=== PATIENT | male | born 1980 | race Caucasian/White ===

== ENCOUNTER 2017-08-14 11:01 | Emergency (ER) | payer SELFPAY ==
[2017-08-14] MEDS ORDERED: Glucagon* 1 MG VIAL IV ONE (11:20)
[2017-08-14] MEDS ORDERED: NS 0.9% 1000 ML* 1,000 ML IV ONE (11:24)
--- NOTE | 2017-08-14 11:57 | ED ---
GI/ HPI - HPI Summary HPI Summary: Pt. is a 37 y.o male who presents to the ER for a piece of meat stuck in his throat. Pt. states he was eating steak last night when a piece become lodge in his throat. Pt. states he is unable to keep down liquids today. He states this has happened in the past but passed on its own. Symptoms are moderate in severity. No past medical history. No current modifying factors. - History of Current Complaint Chief Complaint: EDForeignBodyEsophag Time Seen by Provider: 08/14/17 11:15 Stated Complaint: FO IN THROAT Hx Obtained From: Patient Pain Intensity: 0 - Allergy/Home Medications Allergies/Adverse Reactions: Allergies Allergy/AdvReac Type Severity Reaction Status Date / Time No Known Allergies Allergy Verified 08/14/17 11:05 Home Medications: Home Medications LoraTADine TAB(NF) [Claritin 10 MG TAB(NF)] 10 mg PO DAILY PRN 08/14/17 [ History Confirmed 08/14/17] Minocycline (NF) 100 mg PO DAILY 08/14/17 [History Confirmed 08/14/17] PMH/Surg Hx/FS Hx/Imm Hx Previously Healthy: Yes - Immunization History Date of Tetanus Vaccine: 1998 Infectious Disease History: No Infectious Disease History: Denies: Traveled Outside the [place] in Last 30 Days - Social History Substance Use Type: Reports: None Review of Systems All Other Systems Reviewed And Are Negative: Yes Physical Exam Triage Information Reviewed: Yes Vital Signs On Initial Exam: Initial Vitals Temp Pulse Resp BP Pulse Ox 98.2 F 99 16 145/97 99 08/14/17 11:03 08/14/17 11:03 08/14/17 11:03 08/14/17 11:03 08/14/17 11:03 Vital Signs Reviewed: Yes Appearance: Positive: Well-Appearing - Pt. sitting on bed in NAD. Head/Face: Positive: Normal Head/Face Inspection Eyes: Positive: Normal ENT: Positive: Other - No drooling Neck: Positive: Supple Neurological: Positive: Normal, CN Intact II-III Psychiatric: Positive: Affect/Mood Appropriate Diagnostics - Vital Signs Vital Signs Temp Pulse Resp BP Pulse Ox 08/14/17 11:03 98.2 F 99 16 145/97 99 - Laboratory Lab Statement: Any lab studies that have been ordered have been reviewed, and results considered in the medical decision making process. GIGU Course/Dx - Course Course Of Treatment: Pt. presenting with esophageal impaction after eating steak last night. He attempted to drink water in the ER and spit it all back up. IV was started and we'll try 1 mg IV glucagon. GI was consulted. I spoke with Dr. Andrews around noon and he states he will scope pt. in the ER around 1400. 1242: Pt. resting comfortably at this time. 1400: Dr. Andrews in ER to perform scope. Dr. Andrews was successfully able to remove FB. Please see his procedure note for further details. He does not that pt. does have a lower spincter that will need dilated in the future. He would like him started on omeprazole 40mg QD. He states his office will call pt. to set up a follow up appointment. 1645: Pt. has recovered from sedation and is ambulating around the department. Will dc home with . - Diagnoses Differential Diagnoses - Male: Foreign Body Provider Diagnoses: Esophageal obstruction due to food impaction Discharge - Sign-Out/Discharge Documenting (check all that apply): Discharge/Admit/Transfer - Discharge Plan Condition: Good Disposition: HOME Prescriptions: Omeprazole 40 mg PO DAILY #30 capsule. Patient Education Materials: Gastroesophageal Reflux Disease (ED), Esophageal Stricture (ED), Moderate Sedation (ED) Referrals: Anatoly Andrews MD [Medical Doctor] - Humberto ARBOLEDA,Jose Coelho [Primary Care Provider] - Additional Instructions: Dr. Andrews's office will call you to schedule a follow up appointment Take omeprazole as directed Avoid foods high in caffeine, spice, acid, avoid alcohol and smoking Return to ER if symptoms change or worsen - Billing Disposition and Condition Condition: GOOD Disposition: Home
[2017-08-14] MEDS ORDERED: Midazolam* 1 MG/ML 10 ML VIAL (10 MG) ONE (13:57)
[2017-08-14] MEDS ORDERED: fentaNYL* 50 MCG/ML 2 ML VIAL (100 MCG VIAL) ONE (13:57)
[2017-08-14 16:54] VITALS: BP 110/74
--- NOTE | 2017-08-15 11:32 | CONS ---
CONSULTATION REPORT: DATE OF CONSULTATION: 08/14/17 REQUESTING PHYSICIAN: Dr. Arriaga. INDICATION: Dysphagia. NARRATIVE: Mr. Aragon is a pleasant 37-year-old gentleman who has a history of dysphagia in the past, usually to meats; however, food has never become stuck permanently. He was eating steak yesterday and it became stuck. It has been stuck there since approximately 5 p.m. yesterday. He is unable to swallow his saliva. He does have substernal chest pressure. Denies any history of allergies or asthma. Rare acid reflux. He does not take any medicines for this. He does have some allergies and some acne. That is the only other past medical history. PAST SURGICAL HISTORY: Includes hernia repair as a child. MEDICATIONS: Include: 1. Claritin. 2. Minocycline. ALLERGIES: No known drug allergies. FAMILY HISTORY: No esophageal malignancies. SOCIAL HISTORY: He does drink alcohol. He does smoke marijuana. REVIEW OF SYSTEMS: Twelve systems were reviewed and other than that mentioned in the HPI were unremarkable. PHYSICAL EXAMINATION: Vital Signs: Temperature is 98.2, blood pressure is 145/ 97, pulse is 99. General: Well-appearing male in no apparent distress. Alert , oriented, pleasant, fluent. HEENT: Mucous membranes are moist without lesions, ulcers, or exudate. Neck is supple. Trachea is midline. Head is normocephalic, atraumatic. Heart: Regular rate and rhythm. Lungs: Clear to auscultation. Abdomen: Positive bowel sounds. Soft, nontender, and nondistended. No hepatosplenomegaly, masses, rebound, or guarding. Skin is warm and dry. Psych: Normal affect. Good insight, good judgment. Lymph: No supraclavicular or cervical lymphadenopathy. ASSESSMENT/PLAN: A pleasant 37-year-old gentleman with esophageal foreign body , likely steak. He will need an urgent EGD. I will make arrangements for it immediately in the emergency room. [id number]/[facility] #: [id number] [facility] [place] [facility]
--- NOTE | 2017-08-15 12:23 | PRO ---
CC: Dr. Jose Paul * DATE OF PROCEDURE: 08/14/17 - EMERGENCY DEPT PROCEDURE PERFORMED: EGD with foreign body removal performed in the emergency room. INDICATION: Esophageal foreign body. REFERRING PHYSICIAN: Dr. Jose Paul. MEDICATIONS GIVEN: 1. IV fentanyl 200 mcg. 2. IV Versed 22 mg. The patient uses marijuana and alcohol on a regular basis. PROCEDURE IN DETAIL: After the EGD procedure including risks, benefits and alternatives not limited to perforation, surgery, and/or were explained to the patient, written consent was then obtained, IV medication was given and a bite block was placed between the teeth. An Olympus gastroscope was then inserted into the patient's mouth, advanced down the esophagus, into the stomach , and into the distal duodenum. In the esophagus at the GE junction, there was a large piece of meat noted. I did use the [employer] Net to remove the meat in 2 large chunks and then with insufflation and just a gentle touch of pressure, the remaining meat easily advanced down into the stomach. At the GE junction, there was a stricture. It did appear ulcerated and inflamed likely due to the fact that the meat has been stuck for greater than 16 hours. The scope was advanced through the GE junction and into the body of the stomach. Retroflex and forward views were unremarkable. Meat was seen in the stomach. The scope was advanced through a widely patent pylorus, into the duodenal bulb and into the distal duodenum, both of which were unremarkable. The scope was then withdrawn from the patient. He tolerated the procedure well and was returned to the care of the ED staff. IMPRESSION: 1. Complete upper endoscopy into the distal duodenum with esophageal foreign body removal. 2. Esophageal stricture, status post foreign body, status post removal with [employer] Net. 3. I would like him to start omeprazole. He will need a repeat endoscopy in approximately 4 weeks from now. We will call to arrange. He needs to cut up his food and chew it very well. [id number]/[facility] #: [id number] [facility]
== END 2017-08-14 16:57 | disposition home or self-care (01) ==
LOC: ED 11:01
PROC: 0DC58ZZ Extirpation of Matter from Esophagus, Via Natural or Artificial Opening Endoscopic (ICD-10-PCS; principal; 2017-08-14)
DX: K22.2 Esophageal obstruction (principal); S10.15XA Superficial foreign body of throat, initial encounter; T17.820A Food in other parts of respiratory tract causing asphyxiation, initial encounter
CPT/HCPCS: 96374; 99156; 99157; 99284; J1610; J2250; J3010